=== PATIENT | male | born 1960 | race Caucasian/White ===

== ENCOUNTER 2022-06-14 14:19 | Inpatient (IN) | payer OTHER ==
[2022-06-14 14:54] VITALS: BMI 33.9
[2022-06-14] MEDS: SODIUM CHLORIDE 1,000 ML IV SCH (15:42)
[2022-06-14 16:03] LABS: ALBUMIN 3.8 g/dl (3.4-5.0); CALCIUM 9.4 mg/dL (8.5-10.1)
[2022-06-14 16:08] LABS: TOT PROT 8.1 g/dl (6.4-8.2)
[2022-06-14 16:09] LABS: BILIRUBIN,TOTAL 1.4 mg/dL (0.2-1)
[2022-06-14 22:00] LABS: BASO % 1.2 % (0-2.0); EOS % 5.2 % (0-4.5); HEMATOCRIT 43.8 % (35.4-49); HEMOGLOBIN 14.9 GM/dL (11.7-16.9); LYMPH % 28.9 % (8-40); MCH 28.6 pg (25.7-33.7); MCHC 34.1 g/dl (32.0-35.9); MEAN CELL VOLUME 83.8 fl (80-96); MEAN PLT VOLUME 8.8 fl (7.5-11.1); MONO % 11.4 % (3.8-10.2); NEUT % 53.3 % (42.8-82.8); PLATELET COUNT 133 10^3/uL (134-434); RBC 5.23 M/mm3 (4.00-5.60); RDW 14.3 % (11.9-15.9); WHITE BLOOD COUNT 6.9 K/mm3 (4.0-10.0)
[2022-06-14 22:15] LABS: INR 1.39 (0.83-1.09)
[2022-06-14 22:18] LABS: ACTIVATED PTT 30.6 SECONDS (25.2-36.5)
[2022-06-15] MEDS: ASPIRIN COATED 81 MG TABLET.EC PO SCH ×2 (07:15→09:30)
[2022-06-15 07:17] LABS: BASO % 1.4 % (0-2.0); EOS % 8.1 % (0-4.5); HEMATOCRIT 46.6 % (35.4-49); HEMOGLOBIN 15.9 GM/dL (11.7-16.9); LYMPH % 29.3 % (8-40); MCH 28.4 pg (25.7-33.7); MCHC 34.1 g/dl (32.0-35.9); MEAN CELL VOLUME 83.3 fl (80-96); MEAN PLT VOLUME 9.1 fl (7.5-11.1); NEUT % 50.2 % (42.8-82.8); PLATELET COUNT 130 10^3/uL (134-434); RDW 14.2 % (11.9-15.9); WHITE BLOOD COUNT 4.9 K/mm3 (4.0-10.0)
[2022-06-15 07:42] LABS: CALCIUM 9.2 mg/dL (8.5-10.1)
[2022-06-15 07:43] LABS: ALBUMIN 3.5 g/dl (3.4-5.0); BLOOD UREA NITROGEN 14.4 mg/dL (7-18); MAGNESIUM 2.3 mg/dL (1.8-2.4)
[2022-06-15 07:46] LABS: PHOSPHOROUS 3.3 mg/dL (2.5-4.9)
[2022-06-15 07:47] LABS: BILIRUBIN,TOTAL 1.7 mg/dL (0.2-1); TOT PROT 7.4 g/dl (6.4-8.2)
[2022-06-15] MEDS ORDERED: ENALAPRIL MALEATE 5 MG TABLET ONE (08:37)
[2022-06-15] MEDS ORDERED: ASPIRIN COATED 81 MG TABLET.EC ONE (08:37)
[2022-06-15] MEDS ORDERED: ENOXAPARIN NA (PORCINE) 40 MG/0.4 ML DISP.SYRIN SQ ONE (08:38)
[2022-06-15] MEDS: ENOXAPARIN NA (PORCINE) 40 MG/0.4 ML DISP.SYRIN SQ SCH (09:30)
[2022-06-15] MEDS: ENALAPRIL MALEATE 10 MG TABLET PO SCH (09:30)
[2022-06-15] MEDS: SODIUM CHLORIDE 1,000 ML IV SCH (21:03)
[2022-06-15] MEDS: ATORVASTATIN CA 80 MG TABLET (FP) PO SCH (21:04)
[2022-06-15] MEDS ORDERED: ATORVASTATIN CA 40 MG TABLET (FP) PO SCH (22:00)
[2022-06-15] MEDS ORDERED: ATORVASTATIN CA 20 MG TABLET (FP) PO SCH (22:00)
[2022-06-16 07:46] LABS: BASO % 1.2 % (0-2.0); EOS % 7.4 % (0-4.5); HEMATOCRIT 48.3 % (35.4-49); HEMOGLOBIN 16.3 GM/dL (11.7-16.9); LYMPH % 27.7 % (8-40); MCH 28.3 pg (25.7-33.7); MCHC 33.6 g/dl (32.0-35.9); MEAN CELL VOLUME 84.2 fl (80-96); MEAN PLT VOLUME 9.4 fl (7.5-11.1); NEUT % 54.7 % (42.8-82.8); PLATELET COUNT 135 10^3/uL (134-434); RBC 5.74 M/mm3 (4.00-5.60); RDW 14.5 % (11.9-15.9); WHITE BLOOD COUNT 5.3 K/mm3 (4.0-10.0)
[2022-06-16 08:14] LABS: BLOOD UREA NITROGEN 18.4 mg/dL (7-18); CALCIUM 8.7 mg/dL (8.5-10.1)
[2022-06-16 08:17] LABS: CREATININE 0.9 mg/dL (0.55-1.3)
[2022-06-16] MEDS: ENALAPRIL MALEATE 10 MG TABLET PO SCH (10:39)
[2022-06-16] MEDS: ASPIRIN COATED 81 MG TABLET.EC PO SCH (10:39)
[2022-06-16] MEDS: ENOXAPARIN NA (PORCINE) 40 MG/0.4 ML DISP.SYRIN SQ SCH (10:39)
[2022-06-16] MEDS ORDERED: MAGNESIUM OXIDE 400 MG TABLET (FP) PO ONE (16:24)
[2022-06-16] MEDS: SODIUM CHLORIDE 1,000 ML IV SCH (17:49)
[2022-06-16] MEDS: ATORVASTATIN CA 80 MG TABLET (FP) PO SCH (21:30)
[2022-06-17] MEDS ORDERED: ACETAMINOPHEN 325 MG TABLET (FP) PO PRN (07:19)
[2022-06-17 09:00] LABS: BASO % 1.3 % (0-2.0); EOS % 9.8 % (0-4.5); HEMATOCRIT 47.9 % (35.4-49); HEMOGLOBIN 16.5 GM/dL (11.7-16.9); LYMPH % 28.9 % (8-40); MCH 28.5 pg (25.7-33.7); MCHC 34.3 g/dl (32.0-35.9); MEAN CELL VOLUME 83.2 fl (80-96); MEAN PLT VOLUME 9.3 fl (7.5-11.1); MONO % 10.3 % (3.8-10.2); NEUT % 49.7 % (42.8-82.8); PLATELET COUNT 129 10^3/uL (134-434); RBC 5.76 M/mm3 (4.00-5.60); RDW 14.3 % (11.9-15.9); WHITE BLOOD COUNT 4.8 K/mm3 (4.0-10.0)
[2022-06-17] MEDS: ASPIRIN COATED 81 MG TABLET.EC PO SCH (09:10)
[2022-06-17] MEDS: ENALAPRIL MALEATE 10 MG TABLET PO SCH (09:10)
[2022-06-17] MEDS: ENOXAPARIN NA (PORCINE) 40 MG/0.4 ML DISP.SYRIN SQ SCH (09:10)
[2022-06-17 09:18] LABS: MAGNESIUM 2.3 mg/dL (1.8-2.4)
[2022-06-17 09:19] LABS: BLOOD UREA NITROGEN 15.7 mg/dL (7-18); CALCIUM 8.8 mg/dL (8.5-10.1)
[2022-06-17 09:24] LABS: CREATININE 0.9 mg/dL (0.55-1.3); PHOSPHOROUS 2.9 mg/dL (2.5-4.9)
[2022-06-17] MEDS: ATORVASTATIN CA 80 MG TABLET (FP) PO SCH (22:24)
[2022-06-18 08:25] LABS: BASO % 1.7 % (0-2.0); EOS % 9.7 % (0-4.5); HEMATOCRIT 48.1 % (35.4-49); HEMOGLOBIN 16.2 GM/dL (11.7-16.9); LYMPH % 26.9 % (8-40); MCH 28.4 pg (25.7-33.7); MCHC 33.8 g/dl (32.0-35.9); MEAN PLT VOLUME 9.6 fl (7.5-11.1); MONO % 10.2 % (3.8-10.2); NEUT % 51.5 % (42.8-82.8); PLATELET COUNT 146 10^3/uL (134-434); RBC 5.72 M/mm3 (4.00-5.60); RDW 14.6 % (11.9-15.9); WHITE BLOOD COUNT 5.2 K/mm3 (4.0-10.0)
[2022-06-18 08:35] LABS: CALCIUM 9.3 mg/dL (8.5-10.1)
[2022-06-18 08:36] LABS: BLOOD UREA NITROGEN 16.7 mg/dL (7-18)
[2022-06-18 08:39] LABS: CREATININE 1.1 mg/dL (0.55-1.3)
[2022-06-18] MEDS: ENALAPRIL MALEATE 10 MG TABLET PO SCH (10:28)
[2022-06-18] MEDS: ENOXAPARIN NA (PORCINE) 40 MG/0.4 ML DISP.SYRIN SQ SCH (10:28)
[2022-06-18] MEDS: ASPIRIN COATED 81 MG TABLET.EC PO SCH (10:28)
[2022-06-18] MEDS: SODIUM CHLORIDE 1,000 ML IV SCH (17:56)
[2022-06-18] MEDS: ATORVASTATIN CA 80 MG TABLET (FP) PO SCH (21:27)
[2022-06-19 07:34] LABS: BASO % 1.2 % (0-2.0); HEMATOCRIT 48.4 % (35.4-49); HEMOGLOBIN 16.5 GM/dL (11.7-16.9); LYMPH % 29.9 % (8-40); MCH 28.6 pg (25.7-33.7); MCHC 34.1 g/dl (32.0-35.9); MEAN PLT VOLUME 9.5 fl (7.5-11.1); MONO % 11.7 % (3.8-10.2); NEUT % 47.2 % (42.8-82.8); PLATELET COUNT 141 10^3/uL (134-434); RBC 5.76 M/mm3 (4.00-5.60); RDW 14.1 % (11.9-15.9); WHITE BLOOD COUNT 5.7 K/mm3 (4.0-10.0)
[2022-06-19 07:41] LABS: CALCIUM 8.8 mg/dL (8.5-10.1)
[2022-06-19 07:45] LABS: CREATININE 1.1 mg/dL (0.55-1.3)
[2022-06-19] MEDS ORDERED: ATORVASTATIN CA 80 MG TABLET (FP) PO SCH (08:03)
[2022-06-19] MEDS ORDERED: ATORVASTATIN CA 20 MG TABLET (FP) PO SCH (08:05)
[2022-06-19] MEDS: ASPIRIN COATED 81 MG TABLET.EC PO SCH (10:12)
[2022-06-19] MEDS: ENALAPRIL MALEATE 10 MG TABLET PO SCH (10:12)
[2022-06-19] MEDS: ENOXAPARIN NA (PORCINE) 40 MG/0.4 ML DISP.SYRIN SQ SCH (10:13)
[2022-06-20 07:20] LABS: BASO % 1.1 % (0-2.0); EOS % 10.2 % (0-4.5); HEMATOCRIT 48.2 % (35.4-49); HEMOGLOBIN 16.5 GM/dL (11.7-16.9); LYMPH % 26.4 % (8-40); MCH 28.7 pg (25.7-33.7); MCHC 34.1 g/dl (32.0-35.9); MEAN CELL VOLUME 84.2 fl (80-96); MEAN PLT VOLUME 9.1 fl (7.5-11.1); MONO % 8.7 % (3.8-10.2); NEUT % 53.6 % (42.8-82.8); PLATELET COUNT 141 10^3/uL (134-434); RBC 5.73 M/mm3 (4.00-5.60); RDW 14.2 % (11.9-15.9); WHITE BLOOD COUNT 5.9 K/mm3 (4.0-10.0)
[2022-06-20 07:37] LABS: CALCIUM 8.7 mg/dL (8.5-10.1)
[2022-06-20 07:38] LABS: BLOOD UREA NITROGEN 16.9 mg/dL (7-18)
[2022-06-20 07:41] LABS: CREATININE 1.1 mg/dL (0.55-1.3); PHOSPHOROUS 3.3 mg/dL (2.5-4.9)
[2022-06-20 08:53] VITALS: TEMP 98
[2022-06-20] MEDS: ENOXAPARIN NA (PORCINE) 40 MG/0.4 ML DISP.SYRIN SQ SCH (09:56)
[2022-06-20] MEDS: ASPIRIN COATED 81 MG TABLET.EC PO SCH (09:56)
[2022-06-20] MEDS: ENALAPRIL MALEATE 10 MG TABLET PO SCH (09:56)
[2022-06-20 17:41] VITALS: BP 127/80; PULSE 77; RESP 18
== END 2022-06-20 18:20 | DRG 58 ==
LOC: JER 14:19 → JERBED 19:25 → J4W 06-15 19:39
PROVIDERS: ADMIT Internal Medicine; ATTEND Internal Medicine
DX: I69.30 Unspecified sequelae of cerebral infarction (principal); G81.94 Hemiplegia, unspecified affecting left nondominant side; G93.89 Other specified disorders of brain; I10 Essential (primary) hypertension; I25.10 Atherosclerotic heart disease of native coronary artery without angina pectoris; E78.5 Hyperlipidemia, unspecified; I25.2 Old myocardial infarction; I44.0 Atrioventricular block, first degree; G89.29 Other chronic pain; R29.810 Facial weakness; R29.709 NIHSS score 9
CPT/HCPCS: 0241U-QW; 36415; 70450-TC; 70496-TC; 70551-TC; 80048; 80053; 80061; 82550; 82553; 82962; 83036; 83735; 84100; 84443; 84484; 85025; 85610; 85730; 86850; 86900; 86901; 93005; 93010; 93306-TC; 93880-TC; 97116-GP; 97162-GP; 99285-25; C9803-CS; U0003; U0005